=== PATIENT | male | born 1995 | race Two or more races ===

== ENCOUNTER 2023-09-18 19:19 | Inpatient (IN) | payer OTHER ==
[2023-09-18 20:20] VITALS: BMI 23.5
[2023-09-18] MEDS ORDERED: MAGNESIUM HYDROX 2400MG/30ML ORAL SUSPENSION 30 ML CUP PO PRN (23:51)
[2023-09-18] MEDS ORDERED: ACETAMINOPHEN 325 MG TABLET (FP) PO PRN (23:51)
[2023-09-18] MEDS ORDERED: guaiFENesin 600 MG TABLET.ER (FP) PO PRN (23:51)
[2023-09-18] MEDS ORDERED: NICOTINE POLACRILEX 2 MG LOZENGE BC PRN (23:51)
[2023-09-18] MEDS ORDERED: BENZONATATE 200 MG CAPSULE PO PRN (23:51)
[2023-09-18] MEDS ORDERED: POLYETHYLENE GLYCOL (HEALTHYLAX) 3350 17 GM PACKET PO PRN (23:51)
[2023-09-18] MEDS ORDERED: BENZOCAINE/MENTHOL (CHLORASEPTIC ) LOZENGE MM PRN (23:51)
[2023-09-18] MEDS ORDERED: NICOTINE POLACRILEX 2 MG GUM BUC PRN (23:51)
[2023-09-18] MEDS ORDERED: LOPERAMIDE HCL 2 MG CAPSULE PO PRN (23:51)
[2023-09-18] MEDS ORDERED: MAG HYDROX/AL HYDROX/SIMETH 30 ML UNIT-DOSE CUP PO PRN (23:51)
[2023-09-19] MEDS: MELATONIN 5 MG TABLETS PO SCH (03:16)
[2023-09-19] MEDS: CLINDAMYCIN HCL 150 MG CAPSULE (FP) PO SCH (06:09)
[2023-09-19] MEDS: TUBERCULIN PPD 5 TU/0.1ML SYRINGE (IN PATIENT USE ONLY) ID ONE (10:43)
[2023-09-19] MEDS: PRENATAL VITAMINS W/ FOLIC ACID TABLET (FP) PO SCH (10:43)
[2023-09-19] MEDS: hydrOXYzine PAMOATE 25 MG CAPSULE (FP) PO PRN (10:48)
[2023-09-19] MEDS: IBUPROFEN 400 MG TABLET (FP) PO PRN (10:48)
[2023-09-19 11:35] LABS: POTASSIUM 3.4 mmol/L (3.5-5.1)
[2023-09-19 11:37] LABS: CALCIUM 8.1 mg/dL (8.5-10.1)
[2023-09-19 11:38] LABS: ALBUMIN 3.6 g/dl (3.4-5.0); BLOOD UREA NITROGEN 14.5 mg/dL (7-18)
[2023-09-19 11:41] LABS: CREATININE 0.8 mg/dL (0.55-1.3)
[2023-09-19 11:43] LABS: BILIRUBIN,TOTAL 0.8 mg/dL (0.2-1); TOT PROT 6.4 g/dl (6.4-8.2)
[2023-09-19 11:46] LABS: HEMATOCRIT 36.8 % (35.4-49); HEMOGLOBIN 12.5 GM/dL (11.7-16.9); MCH 27.7 pg (25.7-33.7); MEAN CELL VOLUME 81.5 fl (80-96); MEAN PLT VOLUME 7.8 fl (7.5-11.1); PLATELET COUNT 189 10^3/uL (134-434); RBC 4.51 M/mm3 (4.00-5.60); RDW 14.2 % (11.9-15.9)
[2023-09-19 12:06] LABS: SYPHILIS W/ RPR CONF NON-REACTIVE (NONREACTIVE)
[2023-09-19] MEDS: IBUPROFEN 600 MG TABLET (FP) PO PRN (19:01)
[2023-09-19] MEDS: THIAMINE 100 MG TABLET PO SCH (21:10)
[2023-09-20 07:00] VITALS: BP 117/76; PULSE 61; RESP 16; TEMP 97.5
[2023-09-20 12:25] LABS: URINE APPEARANCE CLEAR; URINE BILIRUBIN NEGATIVE (NEGATIVE); URINE COLOR YELLOW; URINE GLUCOSE (UA) NEGATIVE (NEGATIVE); URINE KETONE NEGATIVE (NEGATIVE); URINE LEUK ESTERASE NEGATIVE (NEGATIVE); URINE NITRITE NEGATIVE (NEGATIVE); URINE PROTEIN NEGATIVE (NEGATIVE)
[2023-09-20] MEDS: POTASSIUM CHLORIDE ORAL LIQUID 20 MEQ/15 ML PO ONE (14:48)
== END 2023-09-20 13:35 | disposition home or self-care (01) | DRG 772 ==
LOC: YASAS 19:19 → Y3N 09-19 02:02 → UNDOADMIN 09-19 02:02 → Y3NR 09-19 02:29 → Y5N 09-19 12:50
PROVIDERS: ADMIT Allergy & Immunology; ATTEND Psychiatry & Neurology Pain Medicine
PROC: HZ42ZZZ Group Counseling for Substance Abuse Treatment, Cognitive-Behavioral (ICD-10-PCS; principal; 2023-09-19)
DX: F14.20 Cocaine dependence, uncomplicated (principal); F12.20 Cannabis dependence, uncomplicated; F17.210 Nicotine dependence, cigarettes, uncomplicated; F41.9 Anxiety disorder, unspecified; F19.980 Other psychoactive substance use, unspecified with psychoactive substance-induced anxiety disorder; F19.959 Other psychoactive substance use, unspecified with psychoactive substance-induced psychotic disorder, unspecified; Z56.0 Unemployment, unspecified; Z59.01 Sheltered homelessness
CPT/HCPCS: 36415; 80053; 80305; 81003; 85027; 86780; 86803; 87811; 93005; 93010